=== PATIENT | female | born 1945 | race Caucasian/White ===

== ENCOUNTER 2020-04-29 13:19 | Inpatient (IN) | payer MEDICARE, SELFPAY ==
[2020-04-29] VITALS (14 sets, daily range): BP systolic 153–228; BP diastolic 67–110; PULSE 56–83; RESP 12–22; TEMP 36.1–36.7; O2SAT 93–99
--- NOTE | ~2020-04-29 | US_ITS ---
EXAMINATION: US carotid duplex BI DATE: 04/30/2020 12:41 INDICATION: Acute pontine infarct. TECHNIQUE: Grayscale, color Doppler, and pulsed Doppler images of the cervical carotid arteries were obtained. The degree of vessel stenosis is placed in one of the following categories: normal, <50%, 5 0-69%, >=70% but less than near-occlusion, near-occlusion, or total occlusion. Note that percent sten osis relative to normal distal artery lumen diameter is indirectly measured from velocity measurement s as described by John, et al. Radiology 2003; 229:340-346. COMPARISON: None. FINDINGS: RIGHT: The right common carotid artery (CCA) peak systolic velocity (PSV) is 75 cm/s. The right internal car otid artery (ICA) PSV is 87 cm/s. The right ICA end-diastolic velocity (EDV) is 15 cm/s. The right IC A/CCA PSV ratio is 1.2. Grayscale and color Doppler images yield an estimate of <50% diameter reducti on from plaque in the ICA. There is antegrade flow in the right vertebral artery. LEFT: The left CCA PSV is 79 cm/s. The left ICA PSV is 65 cm/s. The left ICA EDV is 12 cm/s. The left ICA/C CA PSV ratio is 0.8. Grayscale and color Doppler images yield an estimate of <50% diameter reduction from plaque in the ICA. There is antegrade flow in the left vertebral artery. IMPRESSION: 1. <50% stenosis in the right internal carotid artery. 2. <50% stenosis in the left internal carotid artery. Reviewed, dictated and finalized at location A.
--- NOTE | ~2020-04-29 | CT_ITS ---
EXAMINATION: CT brain wo con EXAM DATE: 04/29/2020 13:48 INDICATION: Left arm numbness, slurred speech. TECHNIQUE: Spiral CT of the head was performed without contrast. Axial, coronal and sagittal images were reviewed. The dose-length product (DLP) for this examination was 605.33 mGy-cm. The exposure w as tailored according to patient size, and iterative reconstruction (ASIR) was used as additional dos e reduction technique. There is no prior study for comparison. FINDINGS: There is no acute intraparenchymal hemorrhage. No evidence of intraparenchymal brain mass lesion. No evidence of acute infarction. Please note that initial head CT has limited sensitivity f or small or acute infarctions. Punctate old left brachium pontis and left basal ganglia lacunar infa rctions. There is mild to moderate periventricular and subcortical hypodensity, nonspecific but prob ably related to small vessel ischemic disease. There is moderate prominence of the sulci and ventri cles related to cerebral atrophy. There is intracranial carotid arteriosclerosis. There are no ext ra-axial collections. There is no mass effect or midline shift. The orbits are unremarkable. Soft tissue is unremarkable. The visualized sinuses and mastoid air cells are well aerated. IMPRESSION: 1. Small old left lacunar infarctions. 2. Chronic age related findings. Reviewed, dictated and finalized at location A.
--- NOTE | ~2020-04-29 | MR_ITS ---
. EXAMINATION: MR brain/brain stem wo/w con DATE: 04/30/2020 12:20 INDICATION: Abnormal ambulation. Stroke. TECHNIQUE: Magnetic resonance imaging (MRI) of the brain and brainstem was performed without and with 12 mL MultiHance intravenous contrast. Sequences included sagittal and axial T1-weighted FSE, axial diffusion-weighted FS EPI, axial T2*-weighted GRE, axial T2-weighted FLAIR Propeller, and axial T2-we ighted Propeller. Postcontrast sequences included axial and coronal T1-weighted FSE. Apparent diffusi on coefficient (ADC) maps were created. COMPARISON: Head CT 04/29/2020 FINDINGS: There is an acute infarct in the glenn on the right. There are scattered areas of nonspecifi c increased T2-weighted signal intensity in the cerebral white matter and glenn. There is no intracran ial hemorrhage or abnormal mass lesion. There is an old infarct in left cerebellum. There is an old l acunar infarct in the left lentiform nucleus. The ventricles are normal in size. The mastoid air cell s are normal. The paranasal sinuses are clear. The orbits are normal. IMPRESSION: 1. Acute infarct in the glenn on the right. 2. Old infarcts in left cerebellum and the left lentiform nucleus. 3. Moderate nonspecific cerebral white matter disease and pontine disease, which likely represents ch ronic small vessel ischemic disease. Reviewed, dictated and finalized at location A. IMPRESSION: 1. Acute infarct in the glenn on the right. 2. Old infarcts in left cerebellum and the left lentiform nucleus. 3. Moderate nonspecific cerebral white matter disease and pontine disease, whic h likely represents chronic small vessel ischemic disease.
--- NOTE | ~2020-04-29 | XR_ITS ---
EXAMINATION: XR chest 1V EXAM DATE: 04/29/2020 13:51 INDICATION: Weakness, left arm hemiparesis. TECHNIQUE: Portable AP frontal chest x-ray was obtained. Comparison is made to prior examination from 10/18/2014. FINDINGS: There is a right-sided portacatheter. There is moderate chronic hyperinflation. The lungs a re clear. There are no pleural effusions. Cardiac silhouette is prominent but magnified on this AP technique. There is no pneumothorax suspected. The bones are osteopenic. There are bony degenerat ammon changes. Axillary surgical clips. IMPRESSION: No acute cardiopulmonary findings. Reviewed, dictated and finalized at location A.
--- NOTE | 2020-04-29 13:26 | ECG_ITS ---
Measurements Intervals [place] Rate: 62 P: 37 [place]: 129 QRS: -60 QRSD: 94 T: 43 QT: 434 QTc: 443 Interpretive Statements SINUS RHYTHM POSSIBLE LEFT ATRIAL ENLARGEMENT LEFT AXIS DEVIATION CANNOT RULE OUT SEPTAL INFARCT, AGE INDETERMINATE BASELINE ARTIFACT- I, II, III, AVR, AVL, AVF, V1, V5-V6 ABNORMAL ECG Electronically Signed On 04-29-2020 13:43:09 CDT by Morris Jones D.O.
[2020-04-29 13:40] LABS: Glucose Point of Care 96 (65-105)
[2020-04-29 13:44] LABS: Basophils Percent Auto 0.6 % (0.2-1.2); Eosinophils Absolute Auto 0.1 K/mm3 (0-0.3); Eosinophils Percent Auto 1.5 % (0-4.4); Hematocrit 43.8 % (37.0-47.0); Hemoglobin 14.6 g/dL (12.0-15.0); Immature Granulocyte Absolute 0.02 K/mm3 (0.00-0.031); Immature Granulocyte Percent A 0.3 % (0-0.5); Lymphocytes Absolute Auto 1.01 K/mm3 (0.9-3.2); Lymphocytes Percent Auto 15.3 % (18.3-44.2); Mean Corpuscular HGB Conc 33.3 g/dl (32-36); Mean Corpuscular Volume 87.1 fl (80-100); Mean Platelet Volume 9.7 fl (7.4-10.4); Monocytes Absolute Auto 0.6 K/mm3 (0.1-0.6); Monocytes Percent Auto 9.4 % (2.6-8.5); Neutrophils Absolute Auto 4.8 K/mm3 (1.3-6.7); Neutrophils Percent Auto 72.9 % (45.5-73.1); Platelet Count Result 209 k/mm3 (150-375); Red Blood Count 5.03 M/mm3 (4.2-5.4); Red Cell Distribution Width 14.6 % (11.5-14.5); White Blood Count 6.6 K/mm3 (4.5-10.0)
[2020-04-29 13:56] LABS: Anion Gap 9 mmol/L (8-16); Blood Urea Nitrogen 11 mg/dL (7-17); Calcium 9.4 mg/dL (8.4-10.2); Carbon Dioxide 28 mmol/L (22-30); Chloride 101 mmol/L (98-107); Estimated CRCL calculation 84 ml/min; Estimated Glomerular Filt Rate > 60; Glucose 104 mg/dL (65-105); Potassium 4.1 mmol/L (3.4-5.0); Sodium 138 mmol/L (137-145)
[2020-04-29 14:01] LABS: Partial Thromboplastin Time 28.4 SECONDS (22.3-36.8)
[2020-04-29 14:08] LABS: Troponin I < 0.012 ng/mL (0.000-0.034)
--- NOTE | 2020-04-29 15:16 | ED.NEUROSD ---
HPI - Neuro Symptoms/Deficit General Chief Complaint: Suspected CVA Stated Complaint: left hand numbess, r/o cva Time Seen by Provider: 04/29/20 15:16 History of Present Illness HPI Narrative: Neurological symptoms since about 1000 today. SHe Noted that she was not able to walk without assistance which is not normal for her. She feels as though she is having difficulty controlling her legs, right worse than left. Additionally she has tingling in the left hand. She reports that she has been under increased stress recently. She was noted to be very hypertensive in triage. CT done in triage shows old left lacunar infarcts. She reports urinary frequency, which is not out of the ordinary for her. No fever chills, nausea, vomiting, chest pain, palpitations. She reports no active medical problems and she takes no medications. She does note that her BP runs high. Related Data Allergies Allergy/AdvReac Type Severity Reaction Status Date / Time No Known Allergies Allergy Unverified 10/18/14 20:39 Review of Systems Review of Systems: All systems reviewed & are unremarkable except as noted in HPI and below Constitutional: Constitutional: Denies chills and Denies fever(s) ENT: Denies dizziness Cardiovascular: Cardiovascular: Denies chest pain Respiratory: Respiratory: Denies dyspnea Gastrointestinal: Gastrointestinal: Denies abdominal pain, Denies nausea and Denies vomiting Genitourinary: Genitourinary: Denies hematuria, Reports nocturia, Denies dysuria and Denies urinary incontinence Musculoskeletal: Musculoskeletal: Denies back pain Neurologic: Denies vertigo, Denies dizziness, Denies syncope and Denies weakness Comments: Gait problem [facility] Family History Family History (Updated 04/29/20 @ 18:50 by Paddy Byers RN) Other Unknown family medical history Social History Social History Smoking packs per day: 0.33 Smoking cigarettes per day: 6.6 Years smoked: 10 Smoking pack-years: 3.30 Smoking status: Current every day smoker Alcohol intake: never Substance use: never Gender identity (if verbalized by the patient): Female Spiritual care concerns: No Exam Const: General: no acute distress and alert Nutritional Appearance: well nourished Orientation/consciousness: patient oriented x3 HENMT: Head: normal to inspection Eyes: Pupils: Equal, round and reactive pupils present EOM: EOMs intact bilaterally Resp: Effort & Inspection: normal respiratory effort Auscultation: clear to auscultation bilaterally Cardio: Rate: regular rate Rhythm: regular rhythm GI: GI Palp: Yes Soft to palpation and No Tenderness to palpation present (GI) Skin: General skin exam: normal color Neuro: General: patient oriented x3, moves all extremities and CN's II-XI intact bilaterally Cognition (Neuro): normal cognition Speech: normal speech Gait exam (Neuro): Staggering gait present Motor exam (neuro): 5/5 motor strength present throughout Other: Mild difficulty with [id number] Extrem: General: normal to inspection Course Vital Signs Vital signs: Vital Signs Temperature 36.1 C L 04/29/20 13:23 Pulse Rate 69 04/29/20 13:23 Respiratory Rate 12 04/29/20 13:23 Blood Pressure 226/95 H 04/29/20 13:23 Pulse Oximetry 99 04/29/20 13:23 Temperature 36.7 C 04/29/20 19:03 Pulse Rate 66 04/29/20 19:03 Respiratory Rate 17 04/29/20 19:03 Blood Pressure 189/67 H 04/29/20 19:03 Pulse Oximetry 95 04/29/20 19:03 MDM - Neuro Symptoms/Deficit MDM Narrative Medical decision making narrative: Nothing acute on head CT. Labs essentially normal. Sympotms most likely due to acute ischemic stroke. Will allow permissive hypertension and give ASA. Case discussed with Dr. George. Patient refusing CTA. Will admit for further evaluation Differential Diagnosis Differential diagnosis: Likely cerebrovascular accident and other (UTI
[2020-04-29 16:39] LABS: Add Urine Microscopic? NO; Appearance Urine Clear (Clear); Bilirubin Urine Negative (Negative); Blood Urine Negative (Negative); Color Urine Colorless (Yellow); Glucose Urine UA Negative (Negative); Ketones Urine Negative (Negative); Leukocyte Esterase Ur Negative LEU/UL (Negative); Nitrate Urine Negative (Negative); Protein Urine Negative (Negative); RBC Urine 0-2 /hpf (0-2); Specific Grav Ur 1.006 (1.001-1.035); Squamous Epithelial Cell Urine Occasional /hpf (Few); Urobilinogen Urine Negative mg/dL (<2.0); WBC Urine 0-3 /hpf
--- NOTE | 2020-04-29 16:43 | PC.NURSE ---
Pt refused further CT's ordered. Dr. Burch aware.
[2020-04-29] MEDS: ASPIRIN 81 MG CHEWABLE TABLET 324 MG PO (16:49)
[2020-04-29] MEDS: LABETALOL HCL INJ 100 MG/20 ML VIAL IV PUSH (16:50)
--- NOTE | 2020-04-29 17:04 | PC.NURSE ---
Pt signs refusal of care form for CTA of brain/carotids. Continue to monitor bp.
--- NOTE | 2020-04-29 18:48 | ADMGEN ---
This patient, Mireya Tao, was admitted to Medical Room 253-01. Patient/family oriented to hospital policies and general routines including ID bracelet, bed and alarms, visiting hours, pain management, procedures, bathroom and other care routines, personal items, smoking policy, room service/diet, and visiting hours. Valuables list has been completed. Information on how to activate the Rapid Response Team has been discussed. Patient/Family are encouraged to report perceived risks to care and to ask questions if they do not understand what they are told or what they should do.
--- NOTE | 2020-04-29 22:18 | PM.IMHP ---
H&P: HPI History of Present Illness Date/Time: 04/29/20 22:18 Chief complaint: Suspected stroke, ambulatory dysfunction Narrative: Her chest x-ray was negative. .Mireya Tao is a 74 year old female Who has had a past medical history of having left breast cancer with treatment for 2 years and now her therapy has been completed. The patient states that she is not on any medications. The patient stated that she was having difficulty walking today she felt like her legs were wobbly and were going to give out. This started around 10:00 a.m. today. She did not have any dizziness or feel like the room was spinning. She had no difficulty speaking her any focal weakness. She did have a CT scan performed and it shows an old lacunar infarction. The patient has been under a lot of stress lately and her blood pressure was noted to be elevated in triage. She states that she does not take any medication for her blood pressure. Her blood pressure was noted to be 189/67 and repeat was 171/69. She was given an aspirin and labetalol in the emergency room.Date of service is 04/29/2020 Review of Systems Review of Systems: All systems reviewed & are unremarkable except as noted in HPI and below Constitutional: Constitutional: Reports as per HPI and Reports no additional constitutional complaints Eyes: Eyes: Reports as per HPI and Reports no additional eye complaints ENT: Reports system reviewed and no additional complaints, except as documented and Reports Normal hearing present Cardiovascular: Cardiovascular: Reports no additional cardiovascular complaints Respiratory: Respiratory: Reports no additional respiratory complaints and Reports no additional respiratory complaints Gastrointestinal: Gastrointestinal: Reports as per HPI and Reports no additional gastrointestinal complaints Musculoskeletal: Musculoskeletal: Reports no additional musculoskeletal complaints Integumentary/Breasts: Skin/Breast: Reports system reviewed and no additional complaints, except as docu and Reports as per HPI Neurologic: Reports system reviewed and no additional complaints, except as documented, Reports as per HPI and Reports Normal hearing present Psychiatric: Psychiatric: Reports no additional psychiatric complaints and Reports as per HPI Endocrine: Endocrine: Reports no additional endocrine complaints Hematologic/Lymphatic: Hematologic/Lymphatic: Reports no additional hematologic/lymphatic complaints Allergic/Immunologic: Allergic/Immunologic: Reports no additional allergic/immunologic complaints [facility] Past Medical History Medical History (Updated 04/29/20 @ 22:23 by Trupti Ricketts NP) Breast cancer patient stated that she has completed her course of treatment. She was treated for 7 years and as in remission. Left mastectomy. Surgical History Surgical History (Updated 04/29/20 @ 22:23 by Trupti Ricketts NP) H/O mastectomy left breast History of repair of right hip joint patient stated she has a right femur chadd. Family History Family History (Updated 04/29/20 @ 22:26 by Trupti Ricketts NP) Mother Breast cancer Other Unknown family medical history Social History Social History (Updated 04/29/20 @ 22:28 by Trupti Ricketts NP) Social History: The patient lives with her . Who is a durable power attorney general for healthcare. She is a full code. She has 2 children. She is retired from [employer]. Patient continues to smoke may be a a pack a cigarettes every 3 days. She denies any alcohol drugs. Smoking packs per day: 0.33 Smoking cigarettes per day: 6.6 Years smoked: 10 Smoking pack-years: 3.30 Smoking status: Current every day smoker Alcohol intake: never Substance use: never Gender identity (if verbalized by the patient): Female Spiritual care concerns: No Meds Home Medications and Allergies Home Medications Medication Instructions Recorded Confirmed Type No Home Medications 0
[2020-04-30] VITALS (10 sets, daily range): BP systolic 145–171; BP diastolic 66–92; PULSE 60–103; RESP 16–18; TEMP 36.2–36.7; O2SAT 96–98
--- NOTE | 2020-04-30 | ECHO_ITS ---
Patient Info Name: Mireya Tao Age: 74 years : 1945 Gender: Female Ht: 61 in Wt: 139 lbs BSA: 1.66 m2 HR: 82 bpm BP: 145 / 66 mmHg Heart Rhythm: Sinus Rhythm Technical Quality: Good Exam Date: 04/30/2020 4:13 PM Exam Location: [facility] Patient Status: Inpatient Admit Date: 04/30/2020 Staff Ordering Physician: Wayne Marcos MD Marine Architect: Stiven De La Cruz RDCS Attending Provider: Joy Hubbard PA-C Referring Physician: Priti VILLANUEVA; Exam Type: CA echo doppler w bubble study Study Info Indications 436 - Cerebral Vascular Accident (Stroke) Complete two-dimensional, color flow and Doppler transthoracic echocardiogram is performed with agitated saline. Contrast/Agitated Saline Contrast/Ag. Saline: Agitated Saline Amount: 18.00 ml Administered By: Marsha Alves RN Existing IV Access: Yes History/Risk Factors CVA; dizziness, HTN. Summary 1. Left ventricular systolic function is normal, estimated at 65-70%. 2. There is mildly increased left ventricular wall thickness. 3. The left ventricular diastolic function is grade I diastolic dysfunction. 4. No intracardiac shunt at the atrial level with injection of agitated saline with and without Valsalva. 5. There is mild tricuspid valve regurgitation. Recommendations * Consider transesophageal echocardiogram if clinically indicated. Left Ventricle Left ventricular chamber dimension is normal. Left ventricular systolic function is normal, estimated at 65-70%. There is mildly increased left ventricular wall thickness. The left ventricular diastolic function is grade I diastolic dysfunction. Right Ventricle Right ventricular chamber dimension is normal. Right ventricular systolic function is normal. Left Atria Left atrial chamber dimension is normal. Right Atria Right atrial chamber dimension is normal. Atrial Septum No intracardiac shunt at the atrial level with injection of agitated saline with and without Valsalva. Aortic Valve The aortic valve is probable trileaflet. There is mild aortic valve sclerosis. There is no aortic valve stenosis. There is mild aortic valve regurgitation. Pulmonic Valve The pulmonic valve is not well visualized. Mitral Valve The mitral valve has normal leaflets. There is no mitral valve regurgitation. The mitral valve annulus is mildly calcified. Tricuspid Valve The tricuspid valve leaflets are normal. There is mild tricuspid valve regurgitation. No pulmonary hypertension, estimated pulmonary arterial systolic pressure is 29 mmHg. Pericardium/Pleural The pericardium appears epicardial fat pad. There is no pericardial effusion. Inferior Vena Cava Normal inferior vena cava with >50% collapse upon inspiration consistent with normal right atrial pressure, 5 mmHg. Aorta The aortic root size at the sinus of Valsalva is normal. Left Ventricular Outflow Tract Name Value Normal LVOT 2D LVOT Diameter 1.9 cm LVOT Doppler LVOT Peak Gradient 7 mmHg LVOT Mean Gradient
[2020-04-30] MEDS: hydrALAZINE HCL 20 MG/ML VIAL 10 MG IV PUSH (00:05)
[2020-04-30] MEDS: LORazepam INJ (*CRX) 2 MG/ML VIAL 0.5 MG IV PUSH (02:10)
[2020-04-30 06:17] LABS: Basophils Percent Auto 0.3 % (0.2-1.2); Eosinophils Absolute Auto 0.1 K/mm3 (0-0.3); Eosinophils Percent Auto 1.3 % (0-4.4); Hematocrit 41.1 % (37.0-47.0); Hemoglobin 13.6 g/dL (12.0-15.0); Immature Granulocyte Absolute 0.01 K/mm3 (0.00-0.031); Immature Granulocyte Percent A 0.2 % (0-0.5); Lymphocytes Absolute Auto 0.86 K/mm3 (0.9-3.2); Lymphocytes Percent Auto 14.1 % (18.3-44.2); Mean Corpuscular HGB Conc 33.1 g/dl (32-36); Mean Corpuscular Hemoglobin 28.3 pg (26-34); Mean Corpuscular Volume 85.6 fl (80-100); Mean Platelet Volume 9.8 fl (7.4-10.4); Monocytes Absolute Auto 0.5 K/mm3 (0.1-0.6); Monocytes Percent Auto 8.1 % (2.6-8.5); Neutrophils Absolute Auto 4.6 K/mm3 (1.3-6.7); Platelet Count Result 200 k/mm3 (150-375); Red Cell Distribution Width 14.3 % (11.5-14.5); White Blood Count 6.1 K/mm3 (4.5-10.0)
[2020-04-30 06:25] LABS: Cholesterol 193 mg/dL (0-200); HDL Direct 37 mg/dL; Triglycerides 118 mg/dL (<150)
[2020-04-30 06:29] LABS: Anion Gap 7 mmol/L (8-16); Blood Urea Nitrogen 8 mg/dL (7-17); Calcium 9.2 mg/dL (8.4-10.2); Carbon Dioxide 26 mmol/L (22-30); Chloride 104 mmol/L (98-107); Estimated CRCL calculation 84 ml/min; Estimated Glomerular Filt Rate > 60; Glucose 106 mg/dL (65-105); Magnesium 2.1 mg/dL (1.6-2.3); Potassium 3.5 mmol/L (3.4-5.0); Sodium 137 mmol/L (137-145)
[2020-04-30 06:36] LABS: LDL Cholesterol Direct 131 mg/dL
[2020-04-30] MEDS: ASPIRIN 81 MG ENTERIC TABLET PO (08:54)
[2020-04-30] MEDS: amLODIPine BESYLATE 5 MG TABLET PO (10:27)
[2020-04-30] MEDS: ATORVASTATIN 20 MG TABLET PO (10:28)
--- NOTE | 2020-04-30 11:55 | PCOTNOTE ---
Attempted OT evaluation, pt currently off the unit for MRI. Will attempt at later time.
--- NOTE | 2020-04-30 15:44 | WPDNEURCNPN ---
Assessment and Plan Assessment and plan (1) Elevated blood pressure reading: Code(s): R03.0 - Elevated blood-pressure reading, without diagnosis of hypertension Status: Acute (2) Port-A-Cath in place: Code(s): Z95.828 - Presence of other vascular implants and grafts Status: Acute (3) Brainstem stroke: Code(s): I63.9 - Cerebral infarction, unspecified Status: Acute Additional Plan discussed with her and her daughter who was present at the time of the interview all the option risk in the benefits the daughter will try to persuade her mother who is the patient to have the CTA of the brain done at least and the echocardiogram with a bubble study she should continue aspirin and the statin which has been started by the hospitalist and she should see a primary care physician and if need be I will be happy to follow her by counseled her in detail about the smoking and the other is factors for the stroke Consult date: 04/30/20 Time Seen: 15:15 HPI: Mireya Tao is a 74 year old female she is right-handed and was admitted when she notice that her left arm and hands tingly and numb and that was at the time she woke up in the morning letter on she noticed that she was wobbly and had imbalance and difficult to navigate in the romero which leads to her kitchen she denies having had any headache nausea vomiting chest pain shortness of breath fever chills sore throat double vision blurred vision or any trouble with her legs she also denies that she ever had an episode something like that she is a breast cancer survivor many years ago and has not seen a physician for some time the brain MRI reveals a right pontine stroke and she is on aspirin and atorvastatin the patient has already refused to have a CTA done and also has refused to have an echocardiogram done saying that there is nothing with heart at this time she is doing fairly well and wants to go home and I am not really sure which she would stay for the test I recommended which have already been recommended to her she is a long-time smoker at least a pack a day of a pack per couple of days which is risk factor she carries beside being 74-year-old Review of Systems Review of Systems: All systems reviewed & are unremarkable except as noted in HPI and below PMFSH Past Medical History Medical History Breast cancer patient stated that she has completed her course of treatment. She was treated for 7 years and as in remission. Left mastectomy. Surgical History Surgical History H/O mastectomy left breast History of repair of right hip joint patient stated she has a right femur chadd. Family History Family History Mother Breast cancer Other Unknown family medical history Social History Social History Social History: The patient lives with her . Who is a durable power patent prosecution attorney for healthcare. She is a full code. She has 2 children. She is retired from [employer]. Patient continues to smoke may be a a pack a cigarettes every 3 days. She denies any alcohol drugs. Smoking packs per day: 0.33 Smoking cigarettes per day: 6.6 Years smoked: 10 Smoking pack-years: 3.30 Smoking status: Current every day smoker Alcohol intake: never Substance use: never Gender identity (if verbalized by the patient): Female Spiritual care concerns: No Meds Home Medications and Allergies Home Medications Medication Instructions Recorded Confirmed Type No Home Medications 04/29/20 04/29/20 History Allergies Allergy/AdvReac Type Severity Reaction Status Date / Time No Known Allergies Allergy Unverified 10/18/14 20:39 Vital Signs Vital Signs - 24 hr 04/29/20 15:50 04/29/20 16:42 04/29/20 17:57 Temperature Pulse Rate 83 77
--- NOTE | 2020-04-30 18:11 | PM.IMPN ---
Progress Note: A&P Assessment and Plan (1) Acute CVA (cerebrovascular accident): Code(s): I63.9 - Cerebral infarction, unspecified Status: Acute Assessment and Plan: -----brain MRI shows an acute infarct in the glenn as well as an old infarct in the left cerebellum. No deficits noted on exam and patient's symptoms have improved. The patient has been started on aspirin and telemetry does not show any abnormalities at this time. Her lipid panel was elevated and atorvastatin was started. Her blood pressure is better controlled. She would benefit from an outpatient heart monitor since she has old and new infarcts. Neurology consulted, plan to do a CTA later today. Echo shows no shunting (2) Ambulatory dysfunction: Code(s): R26.2 - Difficulty in walking, not elsewhere classified Status: Acute Assessment and Plan: ------patient did well with physical therapy. Likely due to stroke. Improving (3) Elevated blood pressure reading: Code(s): R03.0 - Elevated blood-pressure reading, without diagnosis of hypertension Status: Acute Assessment and Plan: -----likely due to acute stroke. We allowed permissive hypertension for 24 hours after the symptoms of her stroke started. She was started on Norvasc this morning. Monitor with that (4) Paresthesia: Code(s): R20.2 - Paresthesia of skin Status: Acute Assessment and Plan: See above Time Spent With Patient Time with patient: 25 - 35 minutes Subjective Date/time seen: 04/30/20 18:11 Interval history: Pt is a 74-year-old female here for new onset stroke. Patient was seen today and feels fine and wants to go home. She had previous numbness and tingling to her left hand which has completely resolved. Although I thought her speech was a little slurred on exam, she states that this is how she always talks. No family at bedside to confirm. Pt denies nausea, vomiting, fevers, chills, constipation, diarrhea, chest pain, sob, or abdominal pain. Review of Systems Review of Systems: All systems reviewed & are unremarkable except as noted in HPI and below Exam Narrative: Exam Narrative: General: Well developed well nourished patient in NAD HEENT: normocephalic Neck: supple Neuro: Alert and oriented x4. Equal strength the upper lower extremities 5/5. Able to do [id number] and rapid alternating movements. Cranial nerves 2-12 intact CV:RRR, telemetry reviewed, no overt abnormalities Resp:CTA Abd: Soft, non distended. No pain to palpation. Positive bowel sounds Extremities: No swelling, erythema, or pain to palpation. Objective Data Vital Signs Vital Signs: Vital Signs - 24 hr 04/29/20 19:03 04/29/20 20:00 04/29/20 21:25 Temperature 98.1 F 98.1 F Pulse Rate 66 56 L 63 Respiratory Rate 17 16 Blood Pressure 189/67 H 171/69 H Pulse Oximetry 95 96 04/30/20 00:00 04/30/20 00:04 04/30/20 04:00 Temperature 97.6 F Pulse Rate 72 60 81 Respiratory Rate 16 Blood Pressure 171/92 H Pulse Oximetry 96 04/30/20 05:30 04/30/20 08:00 04/30/20 12:00 Temperature 97.1 F L Pulse Rate 78 98 103 H Respiratory Rate 16 Blood Pressure 149/70 H Pulse Oximetry 98 04/30/20 14:00 Temperature 97.5 F L Pulse Rate 93 Respiratory Rate 16 Blood Pressure 145/66 H Pulse Oximetry 97 Intake/Output Intake/Output: Intake & Output 04/27/20 04/28/20 04/29/20 04/30/20 23:59 23:59 23:59 23:59 Intake Total 1680 Output Total 900 Balance 780 Meds/Results Medications: Active Medications Generic Name Dose Route Start Last Admin Trade Name Freq PRN Reason Stop Dose Admin Amlodipine Besylate 5 mg 04/30/20 09:00 04/30/20 10:27 Norvasc PO 5 mg QAM SERINA Administration Aspirin 81 mg 04/30/20 09:00 04/30/20 08:54 Aspirin Ec PO 81 mg QAM SERINA Administration Atorvastatin Calcium 20 mg 04/30/20 09:00 04/30/20 10:28 Lipitor PO 20 mg
--- NOTE | 2020-04-30 21:45 | PC.NURSE ---
patient to CT for CTA, iv went bad, refuses for re-start of iv and now refuses test all together. returning to room.
[2020-05-01] VITALS: PULSE 90
[2020-05-01 04:00] VITALS: PULSE 68
[2020-05-01 06:00] VITALS: BP 129/58; PULSE 74; RESP 18; TEMP 36.7; O2SAT 96
[2020-05-01 08:00] VITALS: PULSE 72
[2020-05-01] MEDS: ATORVASTATIN 20 MG TABLET PO (09:15)
[2020-05-01] MEDS: ASPIRIN 81 MG ENTERIC TABLET PO (09:15)
[2020-05-01] MEDS: amLODIPine BESYLATE 5 MG TABLET PO (09:15)
--- NOTE | 2020-05-01 09:26 | PC.NURSE ---
Educated patient on safety measures. 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
--- NOTE | 2020-05-01 10:28 | WPDNEUROPN ---
Progress Note: A&P Assessment and Plan (1) Acute CVA (cerebrovascular accident): Code(s): I63.9 - Cerebral infarction, unspecified Status: Acute (2) Brainstem stroke: Code(s): I63.9 - Cerebral infarction, unspecified Status: Acute (3) Elevated blood pressure reading: Code(s): R03.0 - Elevated blood-pressure reading, without diagnosis of hypertension Status: Acute (4) Ambulatory dysfunction: Code(s): R26.2 - Difficulty in walking, not elsewhere classified Status: Acute (5) Paresthesia: Code(s): R20.2 - Paresthesia of skin Status: Acute Additional Plan acute and old stroke with small vessel disease negative echo will be continued on aspirin Review of Systems Review of Systems: All systems reviewed & are unremarkable except as noted in HPI and below Exam Narrative: Exam Narrative: examination today revealed her to be awake alert comfortable in no obvious acute distress in fact she asked me whether you came yesterday or somebody else ,head was normocephalic with no cranial bruit ear nose throat exam was normal ,neck was supple with no cervical bruit, no thyromegaly, no lymphadenopathy ,heart regular with no murmur ,,lungs clear to auscultation abdomen is soft with no organomegaly, neurologically she was awake aler,t she knew that she was in the [facility] speech was not dysphasic no dysarthric , pupils round regular, the vision full,, extraocular full, face symmetrical ,tongue midline, motor examination reveals her to no drift of upper extremity against gravity but she had difficulties in rapid alternating movement . she had slight difficulties in ambulation Objective Data Vital Signs Vital Signs: Vital Signs - 24 hr 04/30/20 12:00 04/30/20 14:00 04/30/20 16:00 Temperature 36.4 C L Pulse Rate 103 H 93 72 Respiratory Rate 16 Blood Pressure 145/66 H Pulse Oximetry 97 04/30/20 20:00 04/30/20 22:00 05/01/20 00:00 Temperature 36.7 C Pulse Rate 68 73 90 Respiratory Rate 18 Blood Pressure 169/85 H Pulse Oximetry 96 05/01/20 04:00 05/01/20 06:00 Temperature 36.7 C Pulse Rate 68 74 Respiratory Rate 18 Blood Pressure 129/58 L Pulse Oximetry 96 Intake/Output Intake/Output: Intake & Output 04/28/20 04/29/20 04/30/20 05/01/20 23:59 23:59 23:59 23:59 Intake Total 1680 600 Output Total 900 900 Balance 780 -300 Meds/Results Medications: Active Medications Generic Name Dose Route Start Last Admin Trade Name Freq PRN Reason Stop Dose Admin Amlodipine Besylate 5 mg 04/30/20 09:00 05/01/20 09:15 Norvasc PO 5 mg QAM SERINA Administration Aspirin 81 mg 04/30/20 09:00 05/01/20 09:15 Aspirin Ec PO 81 mg QAM SERINA Administration Atorvastatin Calcium 20 mg 04/30/20 09:00 05/01/20 09:15 Lipitor PO 20 mg DAILY SERINA Administration Hydralazine HCl 10 mg 04/29/20 22:35 04/30/20 00:05 Apresoline Hcl Inj IV PUSH 10 mg Q8H PRN Administration Blood Pressure - High Lorazepam 0.5 mg 04/29/20 22:35 04/30/20 02:10 Ativan Inj IV PUSH 0.5 mg Q6H PRN Administration Anxiety Radiology Results: ITS Impressions Head CT 04/29/20 13:51 IMPRESSION: 1. Small old left lacunar infarctions. 2. Chronic age related findings. Chest X-Ray 04/29/20 13:55 IMPRESSION: No acute cardiopulmonary findings. Brain MRI 04/30/20 12:25 IMPRESSION: 1. Acute infarct in the glenn on the right. 2. Old infarcts in left cerebellum and the left lentiform nucleus. 3. Moderate nonspecific cerebral white matter disease and pontine disease, which likely represents chronic small vessel ischemic disease. Carotid Doppler Study 04/30/20 12:43 IMPRESSION: 1. <50% stenosis in the right internal carotid artery. 2. <50% stenosis in the left internal carotid artery. Quality VTE Prophylaxis VTE prophylaxis: mechanical ordered
--- NOTE | 2020-05-01 11:50 | PCOTNOTE ---
Attempted OT evaluation, but unable to complete as patient adamantly refused. Patient stated, Tell the doctor, I want to go home .
--- NOTE | 2020-05-01 12:17 | PC.NURSE ---
Called BABAK Hamilton patient and daughter are very adamant about leaving right now. Per Joy, she will be here as soon as she can, this patient is next on her list to see. Patient and daughter very angry and refuse to stay a minute longer . Patient signed AMA form. Notified BABAK Hamilton.
--- NOTE | 2020-05-01 12:41 | P.DS_ITS ---
DS: Admitting Diagnosis Admitting Diagnosis Admitting Diagnosis: Suspected stroke, ambulatory dysfunction DS: Discharge Diagnosis Discharge Diagnosis (1) Acute CVA (cerebrovascular accident): Code(s): I63.9 - Cerebral infarction, unspecified Status: Acute Assessment and Plan: -----brain MRI shows an acute infarct in the glenn as well as an old infarct in the left cerebellum. No deficits noted on exam and patient's symptoms have improved. The patient has been started on aspirin and telemetry does not show any abnormalities at this time. Her lipid panel was elevated and atorvastatin was started. Her blood pressure is better controlled. She would benefit from an outpatient heart monitor since she has old and new infarcts. Neurology consulted, plan to do a CTA later today. Echo shows no shunting (2) Ambulatory dysfunction: Code(s): R26.2 - Difficulty in walking, not elsewhere classified Status: Acute Assessment and Plan: ------patient did well with physical therapy. Likely due to stroke. Improving (3) Elevated blood pressure reading: Code(s): R03.0 - Elevated blood-pressure reading, without diagnosis of hypertension Status: Acute Assessment and Plan: -----likely due to acute stroke. We allowed permissive hypertension for 24 hours after the symptoms of her stroke started. She was started on Norvasc this morning. Monitor with that (4) Paresthesia: Code(s): R20.2 - Paresthesia of skin Status: Acute Assessment and Plan: See above DS: Summary Hospital Course Hospital Course: Patient left AMA before I could see her. The patient and daughter were educated about the risks of leaving AMA by the nurse but did not care to stay. I have called Dr. Nelson who apparently is her primary care physician according to care coordination and let her know about her new stroke. I have called her pharmacy to give her a month's worth of aspirin, atorvastatin, and Norvasc. She has a follow-up with her primary care physician and I talked to Dr. Nelson about possibly a Holter monitor. Dr. Nelson requested that I fax her the information in her office is going to try and reach out to the patient. This was faxed 05/01/20 at 12:43 p.m. Time Spent with Patient Time attestation: Total time spent providing and/or coordinating discharge services:15 min Discharge Plan Discharge Consulting providers: Joaquim George Patient Disposition: Left Against Medical Advice Patient Instructions: Aspirin (By mouth), How to Stop Smoking (DC), Stroke (DC) Discharge Medications: No Action No Home Medications RF: 0 Date of admission: 04/30/20 15:23 Primary Care Provider: PHYSICIAN,FATBACK TRIMMER Admitting Provider: Sumeet Fowler Discharge Date/Time: 05/01/20 12:20 Attending physician on admission: Joy Hubbard Condition: Stable Quality VTE Prophylaxis VTE prophylaxis: mechanical ordered
== END 2020-05-01 12:20 | disposition left against medical advice (07) | DRG 66 ==
LOC: ANHED 15:19 → ANH2MED 17:27
PROVIDERS: Nurse Practitioner; Admitting Provider Internal Medicine; Emergency Provider Emergency Medicine; Visit Provider Family Medicine
DX: I63.9 Cerebral infarction, unspecified (principal); F17.210 Nicotine dependence, cigarettes, uncomplicated; R26.2 Difficulty in walking, not elsewhere classified; R03.0 Elevated blood-pressure reading, without diagnosis of hypertension; R20.2 Paresthesia of skin; Z28.21 Immunization not carried out because of patient refusal; Z85.3 Personal history of malignant neoplasm of breast; Z95.828 Presence of other vascular implants and grafts; Z86.73 Personal history of transient ischemic attack (TIA), and cerebral infarction without residual deficits
CPT/HCPCS: 36415; 70450; 70553; 71045; 80048; 80061; 81003; 82948; 83735; 84443; 84484; 85025; 85610; 85730; 93005; 93306; 93880; 96374; 96375; 97116; 97161; 99285; A9270; G0378; J0360; J2060

== ENCOUNTER 2020-05-02 22:34 | Emergency (ER) | payer MEDICARE, SELFPAY ==
[2020-05-02 22:36] VITALS: BP 225/84; PULSE 68; RESP 17; TEMP 36.2; O2SAT 98
[2020-05-02] MEDS: amLODIPine BESYLATE 5 MG TABLET PO (22:56)
--- NOTE | 2020-05-02 23:01 | ED.RECABL ---
HPI - Recheck/Abnormal Lab/Rx General Chief Complaint: Recheck/Abnormal Lab/Rx Stated Complaint: HTN/STROKE TWO DAYS A GO Time Seen by Provider: 05/02/20 22:39 History of Present Illness HPI narrative: Patient is a 74-year-old female who presents ER with concerns for hypertension. Patient suffered a stroke with brainstem couple days ago. At that time she had the sensation of feeling drunk. She had difficulty walking but was able to walk. On hospital she received amlodipine. Her blood pressure went down appropriately. While she was in the ER in the hospital patient required significant convincing to undergo testing. Then yesterday she left AGAINST MEDICAL ADVICE and never received any information about medications. The hospital service did in fact send her prescriptions to her pharmacy. And they also contacted her primary care physician. Patient is unaware of any of this. She has no additional symptoms today. Just reports that throughout the day her blood pressures been checked by her daughter and continues to remain elevated and she felt like she should have it taken care of. Related Data Home Medications Medication Instructions Recorded Confirmed aspirin 81 mg PO DAILY 05/02/20 05/02/20 Allergies Allergy/AdvReac Type Severity Reaction Status Date / Time No Known Allergies Allergy Verified 05/02/20 22:35 Review of Systems Review of Systems: All systems reviewed & are unremarkable except as noted in HPI and below Constitutional: Constitutional: Denies chills, Denies fever(s) and Denies weakness ENT: Denies nasal congestion and Denies sore throat Cardiovascular: Cardiovascular: Denies chest pain, Denies rapid heart rate and Denies radiating jaw, neck or arm pain Respiratory: Respiratory: Denies cough and Denies dyspnea Neurologic: Denies dizziness, Denies focal weakness and Denies numbness PMF Past Medical History Medical History (Updated 05/02/20 @ 23:54 by Kirill Ortiz MD) Acute CVA (cerebrovascular accident) Brainstem stroke Breast cancer patient stated that she has completed her course of treatment. She was treated for 7 years and as in remission. Left mastectomy. Hypertension Surgical History Surgical History H/O mastectomy left breast History of repair of right hip joint patient stated she has a right femur chadd. Social History Social History Social History: The patient lives with her . Who is a durable power real estate attorney for healthcare. She is a full code. She has 2 children. She is retired from [employer]. Patient continues to smoke may be a a pack a cigarettes every 3 days. She denies any alcohol drugs. Smoking packs per day: 0.33 Smoking cigarettes per day: 6.6 Years smoked: 10 Smoking pack-years: 3.30 Smoking status: Current every day smoker Alcohol intake: never Substance use: never Gender identity (if verbalized by the patient): Female Spiritual care concerns: No Exam Narrative: Exam Narrative: GENERAL: Well-appearing, well-nourished, and in no acute distress. HEAD: Normocephalic, atraumatic. CHEST: Clear to auscultation. No respiratory distress. HEART: Regular rate and rhythm. Normal peripheral pulses. EXTREMITIES: Normal range of motion. No edema. NEURO: Clear speech. Walks with a steady gait. Alert and oriented x3. PSYCH: Normal mood and affect. Course Course Emergency Course: Will resend amlodipine prescription in case did not get sent. Otherwise patient can follow-up with her primary care doctor. Patient and daughter are comfortable with this plan. Vital Signs Vital signs: Vital Signs Temperature 97.2 F L 05/02/20 22:36 Pulse Rate 68 05/02/20 22:36 Respiratory Rate 17 05/02/20 22:36 Blood Pressure 225/84 H 05/02/20 22:36 Pulse Oximetry 98 05/02/20 22:36 Temperature 97.2 F L 05/02/20 22:36 Pulse Rate 82
[2020-05-02 23:27] VITALS: BP 171/69; PULSE 82; RESP 18
[2020-05-03 00:21] VITALS: BP 179/68; PULSE 81; RESP 18; TEMP 36.7; O2SAT 97
== END 2020-05-03 00:21 | disposition home or self-care (01) ==
PROVIDERS: Emergency Provider Emergency Medicine; PCP Family Medicine
DX: I10 Essential (primary) hypertension (principal); Z86.73 Personal history of transient ischemic attack (TIA), and cerebral infarction without residual deficits; Z85.3 Personal history of malignant neoplasm of breast; Z90.12 Acquired absence of left breast and nipple
CPT/HCPCS: 99283; A9270

== ENCOUNTER 2020-06-21 12:26 | Emergency (ER) | payer MEDICARE, SELFPAY ==
[2020-06-21] VITALS (7 sets, daily range): BP systolic 129–151; BP diastolic 57–84; PULSE 68–91; RESP 17–18; TEMP 36.6; O2SAT 95–100
--- NOTE | ~2020-06-21 | XR_ITS ---
EXAMINATION: XR chest 2V EXAM DATE: 06/21/2020 13:33 INDICATION: Syncope . TECHNIQUE: Frontal and lateral projections of the chest obtained and reviewed. Comparison is made to prior examination from 04/29/2020. FINDINGS: There is a right-sided portacatheter in position. Moderate hyperinflation. No confluent con solidation, pneumothorax or pleural effusion suspected. There is aortic arteriosclerosis. Cardiomedia stinal silhouette is normal. Axillary surgical clips. IMPRESSION: Moderate chronic hyperinflation. Reviewed, dictated and finalized at location A. SROOM TEACHER
--- NOTE | 2020-06-21 12:56 | ECG_ITS ---
Measurements Intervals [place] Rate: 71 P: 39 FL: 151 QRS: -37 QRSD: 85 T: 33 QT: 412 QTc: 450 Interpretive Statements SINUS RHYTHM LEFT AXIS DEVIATION DELAYED PRECORDIAL R/S TRANSITION BORDERLINE T WAVE ABNORMALITY- ANTERIOR LEADS BASELINE ARTIFACT- I, III, AVL, V6 BORDERLINE ECG Electronically Signed On 06-21-2020 14:25:21 FISCAL TECHNICIAN by Morris Jones D.O.
[2020-06-21 13:24] LABS: Basophils Absolute Auto 0.1 K/mm3 (0.0-0.1); Basophils Percent Auto 0.7 % (0.2-1.2); Eosinophils Absolute Auto 0.1 K/mm3 (0-0.3); Eosinophils Percent Auto 1.5 % (0-4.4); Hemoglobin 13.5 g/dL (12.0-15.0); Immature Granulocyte Absolute 0.01 K/mm3 (0.00-0.031); Immature Granulocyte Percent A 0.1 % (0-0.5); Lymphocytes Absolute Auto 1.01 K/mm3 (0.9-3.2); Lymphocytes Percent Auto 15.1 % (18.3-44.2); Mean Corpuscular HGB Conc 32.9 g/dl (32-36); Mean Corpuscular Hemoglobin 28.8 pg (26-34); Mean Corpuscular Volume 87.4 fl (80-100); Mean Platelet Volume 9.2 fl (7.4-10.4); Monocytes Absolute Auto 0.5 K/mm3 (0.1-0.6); Monocytes Percent Auto 7.5 % (2.6-8.5); Neutrophils Percent Auto 75.1 % (45.5-73.1); Platelet Count Result 259 k/mm3 (150-375); Red Blood Count 4.69 M/mm3 (4.2-5.4); Red Cell Distribution Width 14.5 % (11.5-14.5); White Blood Count 6.7 K/mm3 (4.5-10.0)
--- NOTE | 2020-06-21 13:32 | ED.GENADULT ---
HPI - General Adult General Chief complaint: Syncope Stated complaint: syncopal episode/heart thing on monitor is bad Time Seen by Provider: 06/21/20 12:29 History of Present Illness HPI narrative: Patient is a 75-year-old female who presents the ER to be evaluated for syncope that occurred 2 days ago and then the possibility of an abnormal heart rate. Patient reports 2 days ago while she was in her kitchen getting ready to do dishes she began to feel hot and sweaty. She took her sweatshirt off. She then lost consciousness for 1 minute. She awoke and was able to go about her day afterwards and has had no similar symptoms since then. Today she was taking her blood pressure and the heart indicator on the blood pressure monitor was blinking. It did this repeatedly and she was told if that occurred she should contact a healthcare professional. She has had no palpitations or racing the heart. No recurrent dizziness. She does not know how to take her own pulse so she did not try. Patient does report she has some mild nausea when she had her episode of syncope. Related Data Allergies Allergy/AdvReac Type Severity Reaction Status Date / Time No Known Allergies Allergy Verified 06/21/20 12:33 Review of Systems Review of Systems: All systems reviewed & are unremarkable except as noted in HPI and below Constitutional: Constitutional: Denies chills, Denies fever(s) and Denies weakness ENT: Denies nasal congestion and Denies sore throat Cardiovascular: Cardiovascular: Denies chest pain, Denies rapid heart rate, Denies radiating jaw, neck or arm pain and Denies slow heart rate Respiratory: Respiratory: Denies cough and Denies dyspnea Gastrointestinal: Gastrointestinal: Reports nausea and Denies vomiting Neurologic: Reports syncope, Denies headache(s) and Denies focal weakness [facility] Past Medical History Medical History (Updated 06/21/20 @ 14:56 by Kirill Ortiz MD) Acute CVA (cerebrovascular accident) Ankle fracture, right (~1992) Brainstem stroke Breast cancer patient stated that she has completed her course of treatment. She was treated for 7 years and as in remission. Left mastectomy. Hypertension Osteoporosis Other jail (current) drug therapy Pain of left sacroiliac joint Quit smoking (~2001) Right femoral fracture (~2013) Surgical History Surgical History H/O mastectomy left breast History of appendectomy (~1985) History of repair of right hip joint patient stated she has a right femur chadd. History of salpingo-oophorectomy Family History Family History Mother Breast cancer Other Unknown family medical history Social History Social History Social History: The patient lives with her . Who is a durable power contract attorney for healthcare. She is a full code. She has 2 children. She is retired from [employer]. Patient continues to smoke may be a a pack a cigarettes every 3 days. She denies any alcohol drugs. Smoking packs per day: 0.33 Smoking cigarettes per day: 6.6 Years smoked: 10 Smoking pack-years: 3.30 Smoking status: Current every day smoker Alcohol intake: never Substance use: never Gender identity (if verbalized by the patient): Female Spiritual care concerns: No Exam Narrative: Exam Narrative: GENERAL: Well-appearing, well-nourished, and in no acute distress. HEAD: Normocephalic, atraumatic. CHEST: Clear to auscultation. No respiratory distress. HEART: Regular rate and rhythm. Normal peripheral pulses. ABDOMEN: Soft, nontender, nondistended. EXTREMITIES: Normal range of motion. No edema. SKIN: Warm, dry, no rash. NEURO: Clear speech, normal strength. Alert and oriented x3. PSYCH: Normal mood and affect. Course Course Emergency Course: Patient informed results. Discussed case w
[2020-06-21 13:36] LABS: Anion Gap 9 mmol/L (8-16); Blood Urea Nitrogen 14 mg/dL (7-17); Calcium 9.6 mg/dL (8.4-10.2); Carbon Dioxide 30 mmol/L (22-30); Chloride 101 mmol/L (98-107); Estimated CRCL calculation 57 ml/min; Estimated Glomerular Filt Rate > 60; Glucose 104 mg/dL (65-105); Sodium 140 mmol/L (137-145)
--- NOTE | 2020-06-21 14:06 | PC.NURSE ---
called chem, added on Trop [id number]
[2020-06-21 14:22] LABS: Add Urine Microscopic? YES; Appearance Urine Clear (Clear); Bacteria Urine Trace /hpf; Bilirubin Urine Negative (Negative); Blood Urine Negative (Negative); Color Urine Straw (Yellow); Glucose Urine UA Negative (Negative); Ketones Urine Negative (Negative); Leukocyte Esterase Ur 1+ LEU/UL (Negative); Mucus Urine Rare /lpf; Nitrate Urine Negative (Negative); Protein Urine Negative (Negative); Specific Grav Ur 1.008 (1.001-1.035); Squamous Epithelial Cell Urine Rare /hpf (Few); Transitional Epi Cells Urine Rare /hpf (None Seen); Urobilinogen Urine Negative mg/dL (<2.0); WBC Urine 0-3 /hpf
[2020-06-21 14:29] LABS: Troponin I < 0.012 ng/mL (0.000-0.034)
== END 2020-06-21 15:07 | disposition home or self-care (01) ==
PROVIDERS: Emergency Provider Emergency Medicine; PCP Family Medicine
DX: R55 Syncope and collapse (principal); Z86.73 Personal history of transient ischemic attack (TIA), and cerebral infarction without residual deficits; Z85.3 Personal history of malignant neoplasm of breast; Z90.12 Acquired absence of left breast and nipple; I10 Essential (primary) hypertension; M81.0 Age-related osteoporosis without current pathological fracture; F17.210 Nicotine dependence, cigarettes, uncomplicated
CPT/HCPCS: 36415; 71046; 80048; 81001; 84484; 85025; 93005; 99284

== ENCOUNTER 2021-03-31 12:47 | Outpatient (CLI) | payer MEDICARE, SELFPAY ==
--- NOTE | ~2021-03-31 | US_ITS ---
EXAMINATION: US venous doppler [facility] DATE: 03/31/2021 13:14 INDICATION: Left lower limb swelling TECHNIQUE: Mcknight scale images without and with compression and Doppler images of the left lower extrem ity veins were obtained. COMPARISON: None FINDINGS: The left common femoral vein, profunda femoral vein, femoral vein, popliteal vein, peroneal trunk, posterior tibial veins, and greater saphenous vein are patent. IMPRESSION: 1. Patent left lower extremity veins. No evidence of deep venous thrombosis. Reviewed, dictated and finalized at location A.
== END 2021-03-31 12:48 | disposition home or self-care (01) ==
LOC: ANHIMG 12:49
PROVIDERS: PCP Family Medicine; Visit Provider Family Medicine
DX: M79.89 Other specified soft tissue disorders (principal)
CPT/HCPCS: 93971

== ENCOUNTER 2021-07-01 11:11 | Outpatient (CLI) | payer MEDICARE, SELFPAY ==
[2021-07-01 11:50] LABS: Alanine Aminotransferase 12 U/L (4-35); Albumin Level 4.3 g/dL (3.5-5.1); Alkaline Phosphatase 118 U/L (38-126); Anion Gap 10 mmol/L (8-16); Aspartate Amino Transferase 21 U/L (14-36); Bilirubin,Total 0.6 mg/dL (0.2-1.3); Blood Urea Nitrogen 14 mg/dL (7-17); Calcium 9.4 mg/dL (8.4-10.2); Carbon Dioxide 26 mmol/L (22-30); Chloride 103 mmol/L (98-107); Creatine Kinase 28 U/L (30-135); Estimated Glomerular Filt Rate > 60; Glucose 104 mg/dL (65-110); Potassium 3.6 mmol/L (3.4-5.0); Sodium 139 mmol/L (137-145)
[2021-07-01 13:57] LABS: Erythrocyte Sedimentation Rate 53 mm/hr (0-20)
== END 2021-07-01 11:12 | disposition home or self-care (01) ==
LOC: ANHLAB 11:13
PROVIDERS: PCP Family Medicine; Visit Provider Family Medicine
DX: M79.10 Myalgia, unspecified site (principal)
CPT/HCPCS: 36415; 80053; 82550; 85652

== ENCOUNTER 2021-08-09 14:25 | Emergency (ER) | payer MEDICARE, SELFPAY ==
[2021-08-09 14:45] VITALS: BP 139/63; PULSE 87; RESP 16; TEMP 36.4; O2SAT 98
--- NOTE | 2021-08-09 15:03 | ED.FALL ---
HPI - Fall General Chief Complaint: Fall Stated Complaint: head and right side injury Time Seen by Provider: 08/09/21 15:03 Source: patient and RN notes reviewed Mode of arrival: ambulatory Limitations: no limitations History of Present Illness HPI Narrative: 76-year-old female presents with concern for fall injury. She reports just prior to arrival she was messing with her bird feeder when she slipped and fell and hit the side of her face onto her wooden deck. She reports headache, eye pain, facial pain, right shoulder pain, limited range of motion of the right upper extremity. Denies loss of consciousness. Denies vomiting. She is not on a blood thinner. Reports EMS arrived because she was unable to help herself up off of the ground. She refused transfer to the emergency room via EMS MD complaint: fall Related Data Allergies Allergy/AdvReac Type Severity Reaction Status Date / Time No Known Allergies Allergy Verified 07/01/21 10:05 Review of Systems Review of Systems: CONSTITUTIONAL: Denies chills, sweats, or fever. SKIN: Reports bruising, bleeding to the left eye and face MUSCULOSKELETAL: Reports right shoulder pain, knee pain NEUROLOGIC: Reports headache All systems reviewed & are unremarkable except as noted in HPI and below PMFSH Past Medical History Medical History Acute CVA (cerebrovascular accident) Ankle fracture, right (~1992) Brainstem stroke Breast cancer patient stated that she has completed her course of treatment. She was treated for 7 years and as in remission. Left mastectomy. Hyperlipidemia Hypertension Osteoporosis Other intermediate (current) drug therapy Pain of left sacroiliac joint Quit smoking (~2001) Right femoral fracture (~2013) Surgical History Surgical History H/O mastectomy left breast History of appendectomy (~1985) History of repair of right hip joint patient stated she has a right femur chadd. History of salpingo-oophorectomy Family History Family History Mother Breast cancer Other Unknown family medical history Social History Social History Social History: The patient lives with her . Who is a durable power ocean export coordinator for healthcare. She is a full code. She has 2 children. She is retired from [employer]. Patient continues to smoke may be a a pack a cigarettes every 3 days. She denies any alcohol drugs. Smoking packs per day: 0.33 Smoking cigarettes per day: 6.6 Years smoked: 10 Smoking pack-years: 3.30 Alcohol intake: never Substance use: never Gender identity (if verbalized by the patient): Female Spiritual care concerns: No Comments At time of signature, agree with nursing past medical, surgical, social and family history. There is no relevant family history pertinent to the presenting complaint Exam Narrative: GENERAL: Well-appearing, well-nourished, and in no acute distress. HEAD: Normocephalic, atraumatic. EYES: Left eye grossly edematous and ecchymotic with abraded skin, ENT: Nares clear, no epistaxis. NECK: Supple. CHEST: No respiratory distress. Speaks in full sentences. HEART: Regular rate and rhythm. EXTREMITIES: Right shoulder tenderness and limited range of motion SKIN: Warm, dry, abrasion to the left eye lid NEURO: Alert and oriented x3. PSYCH: Normal mood and affect Course Course Emergency Course: Patient is aware of, understands and agrees reasons to be transferred to the emergency department. Patient refuses transfer via EMS, will go by private vehicle. Portions of this record may have been created with voice recognition software Level of Care: Express Care Visit Vital Signs Vital signs: Vital Signs Temperature 97.5 F L 08/09/21 14:45 Pulse Rate 87 08/09/21 14:45 Respiratory Ra
== END 2021-08-09 15:14 | disposition short-term general hospital (02) ==
PROVIDERS: Emergency Provider Nurse Practitioner; PCP Family Medicine
DX: S09.90XA Unspecified injury of head, initial encounter (principal); W01.0XXA Fall on same level from slipping, tripping and stumbling without subsequent striking against object, initial encounter; Z86.73 Personal history of transient ischemic attack (TIA), and cerebral infarction without residual deficits; E78.5 Hyperlipidemia, unspecified; I10 Essential (primary) hypertension; M81.0 Age-related osteoporosis without current pathological fracture; Z87.891 Personal history of nicotine dependence; Z85.3 Personal history of malignant neoplasm of breast; Z90.12 Acquired absence of left breast and nipple
CPT/HCPCS: 99212; G0463

== ENCOUNTER 2021-08-09 15:32 | Emergency (ER) | payer MEDICARE, SELFPAY ==
--- NOTE | ~2021-08-09 | XR_ITS ---
EXAMINATION: XR shoulder RT min 2V INDICATION: Right shoulder pain TECHNIQUE: Four views of the right shoulder are submitted. COMPARISON: None FINDINGS: There is subtle irregularity involving the surgical neck of the humerus. Glenohumeral and a cromioclavicular alignment is normal. A right subclavian Port-A-Cath is partially imaged. Soft tissue s are unremarkable. IMPRESSION: 1. Possible nondisplaced surgical neck fracture of the right humerus. Reviewed, dictated and finalized at location F. ION CONSULTANT
--- NOTE | ~2021-08-09 | CT_ITS ---
EXAMINATION: CT facial & cervical spine wo DATE: 08/09/2021 17:58 INDICATION: Head injury TECHNIQUE: Computed tomography (CT) of the maxillofacial region and cervical spine was performed with out intravenous contrast. The dose-length product (DLP) was 372.19 mGy-cm. Automated exposure control and iterative reconstruction technique were employed. COMPARISON: None FINDINGS: MAXILLOFACIAL CT: There is a large left periorbital soft tissue hematoma. In addition there is a 2.3 cm left facial sof t tissue hematoma. There is an acute blowout fracture of the left inferior orbital wall. The left inf erior rectus muscle is partially entrapped in the fracture defect. No additional acute facial fractur e is identified. CERVICAL SPINE CT: There are 2 mm of anterolisthesis of C3 on C4 and 2 mm of retrolisthesis of C4 on C5. There is severe loss of intervertebral disc space height from C3-4 through C6-7. The vertebral body heights are main tained. There is no cervical spine fracture. The odontoid is intact. The prevertebral soft tissues ar e normal. There is severe multilevel facet and uncovertebral joint osteoarthritis. IMPRESSION: 1. Blowout fracture of the left inferior orbital wall with partial entrapment of the inferior rectus muscle. 2. Severe cervical spondylosis without acute abnormality of the cervical spine. 3. Large left periorbital hematoma and left facial soft tissue hematoma. Reviewed, dictated and finalized at location F. DESK TECHNICIAN IMPRESSION: 1. Blowout fracture of the left inferior orbital wall with partial entrapment o f the inferior rectus muscle. 2. Severe cervical spondylosis without acute abnormality of the cervical spine. 3. Large left periorbital hematoma and left facial soft tissue hematoma.
--- NOTE | ~2021-08-09 | CT_ITS ---
EXAMINATION: CT brain wo con INDICATION: Head injury COMPARISON: 04/29/2020 TECHNIQUE: Standard unenhanced head CT. The dose-length product (DLP) was 605.33 mGy-cm. The mA was a djusted according to patient size. Iterative reconstruction technique was employed. FINDINGS: There is no acute intraparenchymal hemorrhage. No evidence of mass lesion. No evidence of a cute infarction. There is mild periventricular and subcortical hypodensity probably related to small vessel ischemic disease. There is mild prominence of the sulci and ventricles related to cerebral atr ophy. Intracranial calcified cerebral atherosclerosis is noted. There are no extra-axial collections. There is no mass effect or midline shift. There is a left periorbital soft tissue hematoma. There is also an approximately 2.3 cm acute left facial soft tissue hematoma. There is a blowout fracture of the left inferior orbital wall. The inferior rectus muscle is partially entrapped in the fracture def ect. IMPRESSION: 1. Left facial and periorbital soft tissue hematoma without acute intracranial abnormality. 2. Blowout fracture of the left inferior orbital wall with partial entrapment of the inferior rectus muscle. Reviewed, dictated and finalized at location F. NG MACHINE OPERATOR IMPRESSION: 1. Left facial and periorbital soft tissue hematoma without acute intracranial abnormality. 2. Blowout fracture of the left inferior orbital wall with partial entrapment o f the inferior rectus muscle.
[2021-08-09 15:39] VITALS: BP 142/76; PULSE 78; RESP 16; TEMP 36.4; O2SAT 98
--- NOTE | 2021-08-09 17:46 | ED.GENADULT ---
HPI - General Adult General Chief complaint: Fall Stated complaint: fell/head injury Time Seen by Provider: 08/09/21 16:39 Source: patient Mode of arrival: ambulatory Limitations: no limitations History of Present Illness HPI narrative: Patient presents for evaluation after a fall that occurred just prior to arrival. She indicates she slipped on some wet leaves on her deck and hit her face against wood. No loss of consciousness. She is not on blood thinners. No vomiting since the episode. She noted facial swelling and pain, as well as right shoulder pain. She states facial pain is minimal, without descriptive quality or numerical rating. She states pain in right shoulder is 10/10 in severity. No descriptive quality the pain. Pain is worse with movement. She reports decreased range of motion in the right shoulder. She was unable to get up at home so EMS was contacted by her daughter. She went to [facility] for evaluation and she was sent here due to her head injury. She has some bruising to right knee and states that she has mild pain in that joint. No loss or ROM. She states she has a hx of right femur fracture, however she does not feel imaging is necessary of her right knee or femur. Related Data Allergies Allergy/AdvReac Type Severity Reaction Status Date / Time No Known Allergies Allergy Verified 08/09/21 15:43 Review of Systems Review of Systems: CONSTITUTIONAL: Denies fever, chills, or sweats. EYES: Reports left periorbital swelling with associated pain. Denies visual changes, redness, or discharge. ENT: Denies rhinorrhea, congestion, sore throat, or otalgia. CARDIOVASCULAR: Denies chest pain, palpitations, or edema. RESPIRATORY: Denies cough or dyspnea. GASTROINTESTINAL: Denies abdominal pain, nausea, vomiting, or diarrhea. GENITOURINARY: Denies dysuria or hematuria. SKIN: Reports left periorbital bruising. Reports bruising to the right knee MUSCULOSKELETAL: Reports mild pain in the right knee. Reports significant pain in the right shoulder with decreased range of motion NEUROLOGIC: Denies headache, numbness, dizziness, or weakness. PSYCHIATRIC: Denies anxiety or depression. [facility] Past Medical History Medical History Acute CVA (cerebrovascular accident) Ankle fracture, right (~1992) Brainstem stroke Breast cancer patient stated that she has completed her course of treatment. She was treated for 7 years and as in remission. Left mastectomy. Hyperlipidemia Hypertension Osteoporosis Other ferry terminal agent (current) drug therapy Pain of left sacroiliac joint Quit smoking (~2001) Right femoral fracture (~2013) Surgical History Surgical History H/O mastectomy left breast History of appendectomy (~1985) History of repair of right hip joint patient stated she has a right femur chadd. History of salpingo-oophorectomy Family History Family History Mother Breast cancer Other Unknown family medical history Social History Social History Social History: The patient lives with her . Who is a durable power police reserves commander for healthcare. She is a full code. She has 2 children. She is retired from [employer]. Patient continues to smoke may be a a pack a cigarettes every 3 days. She denies any alcohol drugs. Smoking packs per day: 0.33 Smoking cigarettes per day: 6.6 Years smoked: 10 Smoking pack-years: 3.30 Alcohol intake: never Substance use: never Gender identity (if verbalized by the patient): Female Spiritual care concerns: No Exam Narrative: GENERAL: Well-nourished, and in no acute distress. HEAD: Normocephalic. +traumatic EYES: Left periorbital swelling and ecchymosis. Unable to assess extraocular movements on left 2/2 swelling ENT: Kateryna
[2021-08-09 18:22] LABS: Basophils Percent Auto 0.3 % (0.2-1.2); Eosinophils Percent Auto 0.3 % (0-4.4); Hematocrit 38.7 % (37.0-47.0); Hemoglobin 12.5 g/dL (12.0-15.0); Immature Granulocyte Absolute 0.05 K/mm3 (0.00-0.031); Immature Granulocyte Percent A 0.4 % (0-0.5); Lymphocytes Absolute Auto 0.87 K/mm3 (0.9-3.2); Lymphocytes Percent Auto 7.5 % (18.3-44.2); Mean Corpuscular HGB Conc 32.3 g/dl (32-36); Mean Corpuscular Hemoglobin 28.2 pg (26-34); Mean Corpuscular Volume 87.2 fl (80-100); Mean Platelet Volume 8.6 fl (7.4-10.4); Monocytes Absolute Auto 0.8 K/mm3 (0.1-0.6); Monocytes Percent Auto 6.5 % (2.6-8.5); Neutrophils Absolute Auto 9.8 K/mm3 (1.3-6.7); Platelet Count Result 274 k/mm3 (150-375); Red Blood Count 4.44 M/mm3 (4.2-5.4); Red Cell Distribution Width 14.7 % (11.5-14.5); White Blood Count 11.5 K/mm3 (4.5-10.0)
[2021-08-09 18:31] LABS: Alanine Aminotransferase 21 U/L (4-35); Albumin Level 4.1 g/dL (3.5-5.1); Alkaline Phosphatase 99 U/L (38-126); Anion Gap 12 mmol/L (8-16); Aspartate Amino Transferase 26 U/L (14-36); Bilirubin,Total 0.7 mg/dL (0.2-1.3); Blood Urea Nitrogen 26 mg/dL (7-17); Calcium 9.2 mg/dL (8.4-10.2); Carbon Dioxide 22 mmol/L (22-30); Chloride 102 mmol/L (98-107); Estimated CRCL calculation 65 ml/min; Estimated Glomerular Filt Rate > 60; Glucose 124 mg/dL (65-110); Potassium 4.2 mmol/L (3.4-5.0); Sodium 136 mmol/L (137-145)
[2021-08-09 18:32] LABS: Partial Thromboplastin Time 25.6 SECONDS (22.3-36.8); Prothrombin Time 13.5 Seconds (11.1-14.7)
[2021-08-09] MEDS: TETANUS,DIPHTHERIA,AC PERTUSSIS ADULT (0.5 ML) BOOSTRIX IM (20:17)
[2021-08-09] MEDS: oxyCODONE/ACETAMINOPHEN (*CRX) 5-325 MG TABLET 2 TABLET PO (20:18)
[2021-08-10 01:21] VITALS: BP 143/75; PULSE 78; RESP 18; O2SAT 97
[2021-08-10] MEDS: MORPHINE SULFATE (*CRX) 2 MG/ML INJ IV PUSH (05:08)
[2021-08-10 05:09] VITALS: BP 146/79; PULSE 87; RESP 18; O2SAT 98
== END 2021-08-10 05:13 | disposition short-term general hospital (02) ==
PROVIDERS: Emergency Provider Nurse Practitioner; PCP Family Medicine
DX: S02.32XA Fracture of orbital floor, left side, initial encounter for closed fracture (principal); S42.214A Unspecified nondisplaced fracture of surgical neck of right humerus, initial encounter for closed fracture; Z23 Encounter for immunization; E78.5 Hyperlipidemia, unspecified; I10 Essential (primary) hypertension; M81.0 Age-related osteoporosis without current pathological fracture; Z90.12 Acquired absence of left breast and nipple; Z85.3 Personal history of malignant neoplasm of breast; Z86.73 Personal history of transient ischemic attack (TIA), and cerebral infarction without residual deficits; F17.210 Nicotine dependence, cigarettes, uncomplicated; M47.812 Spondylosis without myelopathy or radiculopathy, cervical region; W01.0XXA Fall on same level from slipping, tripping and stumbling without subsequent striking against object, initial encounter
CPT/HCPCS: 36415; 70450; 70486; 72125; 73030; 80053; 85025; 85610; 85730; 90471; 90715; 99285; A4565; A9270; J2270

== ENCOUNTER 2021-09-11 21:57 | Emergency (ER) | payer MEDICARE, SELFPAY ==
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
[2021-09-11 22:18] VITALS: BP 147/94; PULSE 90; RESP 22; TEMP 36.3; O2SAT 97
[2021-09-11 22:22] VITALS: O2SAT 97
[2021-09-11 22:26] LABS: Alveolar/Arterial O2 Gradient 113.9 mmHg; Base Excess ABG -2.9 mEq/l (+/-2.0); Fractional Inspired Oxygen 32 %; HCO3 ABG 20.4 mEq/l (22.0-26.0); Methemoglobin ABG 0.2 %THb (0-1.5); Oxygen Saturation ABG 96.1 % (95.0-100.0); PO2 FiO2 Ratio Arterial Blood 2.44 %; Reduced Hemoglobin 4.4 %THb (0-5.0); Total Hemoglobin 12.3 g/dL (12.0-18.0); pH ABG 7.436 (7.350-7.450)
[2021-09-11 22:30] LABS: Oxyhemoglobin 86.4 % THb (90.0-100.0)
[2021-09-11 22:31] LABS: Device NASAL CANNULA; Modified Allen's Test Pass; Site Drawn RIGHT RADIAL
--- NOTE | 2021-09-11 23:09 | PC.NURSE ---
Pt intubated by Dr. Mullen at 2301. Size 7 tube at 23 cm. 30 mg of etomidate and 60 mg of rocuronium administered at 1055 by EDP
[2021-09-11 23:20] VITALS: PULSE 83; O2SAT 100
[2021-09-11 23:43] LABS: Basophils Absolute Auto 0.1 K/mm3 (0.0-0.1); Basophils Percent Auto 0.5 % (0.2-1.2); Eosinophils Absolute Auto 0.1 K/mm3 (0-0.3); Eosinophils Percent Auto 1.2 % (0-4.4); Hematocrit 38.8 % (37.0-47.0); Hemoglobin 12.2 g/dL (12.0-15.0); Immature Granulocyte Absolute 0.04 K/mm3 (0.00-0.031); Immature Granulocyte Percent A 0.4 % (0-0.5); Lymphocytes Absolute Auto 1.44 K/mm3 (0.9-3.2); Lymphocytes Percent Auto 15.6 % (18.3-44.2); Mean Corpuscular HGB Conc 31.4 g/dl (32-36); Mean Corpuscular Hemoglobin 27.1 pg (26-34); Mean Corpuscular Volume 86.2 fl (80-100); Mean Platelet Volume 9.3 fl (7.4-10.4); Monocytes Absolute Auto 0.8 K/mm3 (0.1-0.6); Monocytes Percent Auto 8.5 % (2.6-8.5); Neutrophils Absolute Auto 6.8 K/mm3 (1.3-6.7); Neutrophils Percent Auto 73.8 % (45.5-73.1); Platelet Count Result 276 k/mm3 (150-375); Red Cell Distribution Width 14.7 % (11.5-14.5); White Blood Count 9.2 K/mm3 (4.5-10.0)
[2021-09-11 23:44] VITALS: PULSE 109; RESP 18
[2021-09-11] MEDS: PROPOFOL IV EMULSION 100 ML 1.98 MG IV CONT (23:44)
[2021-09-11 23:50] VITALS: PULSE 98; RESP 19
[2021-09-11 23:53] LABS: Alanine Aminotransferase 15 U/L (4-35); Albumin Level 4.2 g/dL (3.5-5.1); Alkaline Phosphatase 112 U/L (38-126); Anion Gap 12 mmol/L (8-16); Aspartate Amino Transferase 28 U/L (14-36); Bilirubin,Total 0.6 mg/dL (0.2-1.3); Blood Urea Nitrogen 22 mg/dL (7-17); Carbon Dioxide 23 mmol/L (22-30); Chloride 104 mmol/L (98-107); Estimated CRCL calculation 59 ml/min; Estimated Glomerular Filt Rate > 60; Glucose 141 mg/dL (65-110); Potassium 3.3 mmol/L (3.4-5.0); Sodium 139 mmol/L (137-145)
[2021-09-11 23:59] VITALS: PULSE 100; RESP 25
[2021-09-12] VITALS (12 sets, daily range): BP systolic 113–166; BP diastolic 66–127; PULSE 91–102; RESP 16–27; O2SAT 100
[2021-09-12] MEDS: fentaNYL CITRATE INJ (*CRX) 100 MCG/2 ML VIAL 50 MCG IV PUSH (00:18)
[2021-09-12] MEDS: MORPHINE SULFATE (*CRX) 4 MG/ML INJ IV PUSH (00:49)
[2021-09-12] MEDS: SODIUM CHLORIDE 0.9% IV 1,000 ML 999 ML IV CONT (00:50)
--- NOTE | 2021-09-12 01:10 | ECG_ITS ---
Measurements Intervals [place] Rate: 94 P: 60 AR: 140 QRS: -50 QRSD: 90 T: 57 QT: 304 QTc: 381 Interpretive Statements SINUS RHYTHM ATRIAL PREMATURE COMPLEX LEFT ANTERIOR FASCICULAR BLOCK BASELINE ARTIFACT- I, II, III, AVR, AVL, AVF, V1-V6 ABNORMAL ECG Electronically Signed On 09-17-2021 10:17:51 CLAIM INSPECTOR by Morris Jones D.O.
[2021-09-12] MEDS: PROPOFOL IV EMULSION 200 MG/20 ML VIAL 100 MG IV PUSH (01:27)
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
[2021-09-12] MEDS: LORazepam INJ (*CRX) 2 MG/ML VIAL IV PUSH (02:15)
[2021-09-12] MEDS: fentaNYL CITRATE INJ (*CRX) 100 MCG/2 ML VIAL IV PUSH (02:15)
== END 2021-09-12 02:36 | disposition short-term general hospital (02) ==
PROVIDERS: Emergency Provider Emergency Medicine; PCP Family Medicine
DX: T59.811A Toxic effect of smoke, accidental (unintentional), initial encounter (principal); T58.8X1A Toxic effect of carbon monoxide from other source, accidental (unintentional), initial encounter; F17.210 Nicotine dependence, cigarettes, uncomplicated; Z85.3 Personal history of malignant neoplasm of breast; I10 Essential (primary) hypertension; E78.5 Hyperlipidemia, unspecified; X08.8XXA Exposure to other specified smoke, fire and flames, initial encounter
CPT/HCPCS: 31500; 36415; 36600; 80053; 82375; 82805; 83050; 85025; 93005; 96361; 96365; 96366; 96375; 96376; 99285; J0330; J2060; J2270; J2704; J3010; J7030